=== PATIENT | female | born 1975 | race Caucasian/White ===

== ENCOUNTER 2016-12-22 15:08 | Emergency (ER) | payer BC ==
[~2016-12-22] VITALS: Ht 154.9 cm; Wt 53.5 kg
[~2016-12-22 15:08] MED LIST: CLC100 PO; FRRS300 PO; PRENTAB26 PO; SERT100T PO
[2016-12-22 15:12] VITALS: BP 148/83; PULSE 68; TEMP 36.5; O2SAT 98; Ht 154.9 cm; Wt 53.5 kg
[2016-12-22] MEDS ORDERED: PROPARACAINE HCL 0.5% OP SOLN 15 ML BTL OP STA (15:20)
[2016-12-22] MEDS ORDERED: BCPILLS PO (15:41)
[2016-12-22] MEDS ORDERED: SERT25TA PO (15:41)
[2016-12-22] MEDS ORDERED: CIPROFLOXACIN HCL 0.3% OP SOLN 2.5 ML BTL OP ONE (15:45)
[2016-12-22] MEDS ORDERED: NORCO 5/325MG HOME PACK PO ONE (15:45)
--- NOTE | 2016-12-22 16:23 | EMERGENCY ROOM VISIT NOTE ---
ED Visit Note First contact with patient: 15:19 CHIEF COMPLAINT: Eye pain HISTORY OF PRESENT ILLNESS: This 41-year-old female patient presents to the emergency department complaining of pain in the left eye for the past one day. The patient does wear contact lenses, and states that her symptoms began shortly after putting her left contact lens in his morning. Her pain slowly worsened over the course of the day, and she decided to take out her contact lens. This seemed to worsen her discomfort. She went to an urgent care clinic who did not identify the etiology of the patient's pain. There has been a constant moderate pain and irritation, redness and tearing in the eye. There is a mild blurring of vision at times and light bothers the eye. The patient rates the pain as sharp and 8/10. The patient has not had previous injuries to this eye. Tetanus shot is reportedly up to date. REVIEW OF SYSTEMS: A 6 system review of systems was completed with positives and pertinent negatives listed in the HPI. ALLERGIES: Penicillin MEDICATIONS: No chronic medication PMH: Otherwise healthy SOCIAL HISTORY: Lives with family PHYSICAL EXAM: Vital Signs: Reviewed Nurse's notes, vital signs stable. Visual acuity 20/40 in the right with correction and 20/200 in the left without correction. GENERAL: This is a white female, in no acute distress, but who is uncomfortable from the eye problem. Well-developed well-nourished. EYES: The pupils are equal round and reactive to light and accommodation. EOMs are full and without tenderness. There is discharge of clear tears from the left eye which is injected. There is no foreign body visible under the eyelid even after lid eversion. Funduscopic exam reveals no hemorrhages, papilledema, or other abnormalities. No foreign body was seen embedded in the cornea under slit lamp exam. The cornea was clear and no hyphema was seen. Fluorescein uptake was observed with ultraviolet light significant for a corneal abrasion extending from 2:00 to 8:00. EMERGENCY DEPARTMENT COURSE: Physical exam and history were performed. Nursing notes and EMR were reviewed. The patient appears to have suffered injury to her left eye today. She does not have evidence of foreign body, but does wear contact lenses. On Fluorescein exam she does have a moderate corneal abrasion along the left lower aspect of her eye. This seems to be the likely etiology of her discomfort. The patient was treated here in the department with Ciloxan. She will be given a home pack of Vicodin for pain control. She will need to follow with her eye doctor this week before returning to using her contact lenses. She was otherwise invited back to the ER with any new, worsening, or concerning symptoms. Current/Historical Medications Scheduled Control Pills ( Control Pills), 1 TAB PO DAILY Sertraline (Zoloft), 25 MG PO DAILY Sertraline Hcl (Zoloft), 100 MG PO DAILY Allergies Coded Allergies: Penicillin V (Verified Allergy, Unknown, UNKNOWN, 12/22/16) Vital Signs Date Time Temp Pulse Resp B/P (MAP) Pulse Ox O2 Delivery O2 Flow Rate FiO2 12/22/16 15:12 36.5 68 20 148/83 98 Room Air Medications Administered Medications (Trade) Dose Ordered Sig/Ino Route Start Time Stop Time Status Last Admin Dose Admin Proparacaine HCl (Alcaine 0.5% Oph Soln) 2 drops NOW STAT OP 12/22/16 15:20 12/22/16 15:21 DC 12/22/16 15:20 2 DROPS Ciprofloxacin HCl (Ciprofloxacin 0.3% Op Soln) 2 drops NOW ONCE OP 12/22/16 15:45 12/22/16 15:46 DC 12/22/16 15:45 2 DROPS Acetaminophen/ Hydrocodone Bitart ([place] 5/325mg Home Pack) 1 homepack UD ONCE PO 12/22/16 15:45 12/22/16 15:46 DC 12/22/16 15:45 1 HOMEPACK Departure Information Impression Primary Impression: Corneal abrasion Dispostion Home / Self-Care Condition GOOD Referrals Sanna Juarez MD Forms HOME CARE DOCUMENTATION FORM, IMPORTANT VISIT INFORMATION Patient Instructions My [facility] Additional Instructions You were seen and evaluated today on an emergency basis only. This is not a substitute for, or an effort to provide, complete comprehensive medical care. It is not possible to recognize and treat all injuries or illnesses in a single emergency department visit. For this reason it is recommended that you followup with your automotive design layout drafter for ongoing care and evaluation. Use Ciloxan Eye Drops: Instill 1-2 drops into the conjunctival sac every 2 hours while awake for 2 days and 1-2 drops every 4 hours while awake for the next 5 days [place] (hydrocodone/acetaminophen) 5/325 mg every 6 hours as needed for worsening breakthrough pain. Do not drink or drive on [place]. This medication will likely make you tired. Do not take [place] and Tylenol at the same time as both contain acetaminophen. [place] may cause constipation. You may wish to take an [id number] stool softener like Colace if this occurs. You are welcome to return to the emergency department anytime with new, worsening, or concerning symptoms.
== END 2016-12-22 16:01 | disposition home or self-care (01) ==
LOC: C.EDB 15:10 → C.EDD 16:01
DX: S05.02XA Injury of conjunctiva and corneal abrasion without foreign body, left eye, initial encounter (principal); X58.XXXA Exposure to other specified factors, initial encounter